=== PATIENT | female | born 1960 | race Caucasian/White ===

== ENCOUNTER 2017-08-11 17:31 | Inpatient (IN) | payer MEDICARE, MEDICAID ==
[2017-08-11 19:22] LABS: BASO # 0.1 10^3/uL (0.0-0.2); BASO % 0.7 % (0.0-1.0); EOS # 0.2 10^3/uL (0.0-0.50); EOS % 2.5 % (0.0-3.0); IMMATURE GRANULOCYTE % 0.1 % (0-3.0); LYMPH # 1.2 10^3/uL (1.5-4.5); LYMPH % 15.5 % (24.0-44.0); MEAN CORPUSCULAR HEMOGLOBIN 31.3 pg (27.0-33.0); MEAN CORPUSCULAR HGB CONC 33.3 g/dl (32.0-36.5); MEAN CORPUSCULAR VOLUME 93.8 fl (80.0-96.0); MONO # 0.8 10^3/uL (0.0-0.8); MONO % 10.7 % (0.0-5.0); NEUTROPHILS # 5.3 10^3/uL (1.8-7.7); NEUTROPHILS % 70.5 % (36.0-66.0); PLATELET COUNT, AUTOMATED 208 10^3/uL (150-450); RED BLOOD COUNT 4.16 10^6/uL (4.00-5.40); RED CELL DISTRIBUTION WIDTH 12.7 % (11.5-14.5); WHITE BLOOD COUNT 7.5 10^3/uL (4.0-10.0)
[2017-08-11] MEDS: NS 1,000 ML IV (19:29)
[2017-08-11 19:35] LABS: INR 1.11; PARTIAL THROMBOPLASTIN TIME 26.7 SECONDS (25.4-37.6); PROTHROMBIN TIME 14.5 SECONDS (12.1-14.4)
[2017-08-11 19:44] LABS: ANION GAP 7 MEQ/L (8-16); BLOOD UREA NITROGEN 14 MG/DL (7-18); CALCIUM LEVEL 8.7 MG/DL (8.5-10.1); CARBON DIOXIDE LEVEL 28 MEQ/L (21-32); CHLORIDE LEVEL 106 MEQ/L (98-107); CREATININE FOR GFR 0.58 MG/DL (0.55-1.30); GLOMERULAR FILTRATION RATE > 60.0 (>51); GLUCOSE, FASTING 94 MG/DL (70-100); POTASSIUM SERUM 3.8 MEQ/L (3.5-5.1); SODIUM LEVEL 141 MEQ/L (136-145)
[2017-08-11] MEDS ORDERED: ISOVUE-370 76% 100ML VIAL (Q9967) As Ordered (19:58)
[2017-08-11] MEDS: HEPARIN SOD (PORCINE) 5000 UNITS/ML VIAL IV (22:54)
[2017-08-11] MEDS: HEPARIN DRIP 25,000 UNITS in APPROPRIATE DILUENT 1 EA IV (22:55)
[2017-08-12 00:42] LABS: PARTIAL THROMBOPLASTIN TIME > 240.0 SECONDS (25.4-37.6)
[2017-08-12 01:30] LABS: PARTIAL THROMBOPLASTIN TIME 65.7 SECONDS (25.4-37.6)
[2017-08-12] MEDS: HEPARIN DRIP 25,000 UNITS in APPROPRIATE DILUENT 1 EA IV (01:50)
[2017-08-12] MEDS ORDERED: PILL CRUSHER/CUTTER 1 EACH XX (02:00)
[2017-08-12] MEDS: AMPICILLIN SOD/SULBACTAM SOD 1.5 GM in D5W MINI-BAG PLUS 50 ML IV ×5 (02:27→23:57)
[2017-08-12] MEDS: ACETAMINOPHEN TAB 650MG DOSE (2X325MG) PO ×3 (02:27→21:54)
[2017-08-12 08:13] LABS: HEMOGLOBIN 12.2 g/dl (12.0-15.5); MEAN CORPUSCULAR HEMOGLOBIN 31.3 pg (27.0-33.0); MEAN CORPUSCULAR HGB CONC 33.9 g/dl (32.0-36.5); MEAN CORPUSCULAR VOLUME 92.3 fl (80.0-96.0); PLATELET COUNT, AUTOMATED 192 10^3/uL (150-450); RED CELL DISTRIBUTION WIDTH 12.7 % (11.5-14.5); WHITE BLOOD COUNT 5.7 10^3/uL (4.0-10.0)
[2017-08-12 08:24] LABS: PARTIAL THROMBOPLASTIN TIME 38.1 SECONDS (25.4-37.6)
[2017-08-12 08:46] LABS: ANION GAP 8 MEQ/L (8-16); BLOOD UREA NITROGEN 12 MG/DL (7-18); CARBON DIOXIDE LEVEL 25 MEQ/L (21-32); CHLORIDE LEVEL 110 MEQ/L (98-107); CREATININE FOR GFR 0.44 MG/DL (0.55-1.30); GLOMERULAR FILTRATION RATE > 60.0 (>51); GLUCOSE, FASTING 87 MG/DL (70-100); POTASSIUM SERUM 4.2 MEQ/L (3.5-5.1); SODIUM LEVEL 143 MEQ/L (136-145)
[2017-08-12] MEDS: HEPARIN SOD (PORCINE) 5000 UNITS/ML VIAL IV ×2 (08:52→22:25)
[2017-08-12] MEDS: SENOKOT S TAB PO ×2 (08:52→20:26)
[2017-08-12] MEDS: PANTOPRAZOLE 40MG TAB (PROTONIX) PO (08:53)
[2017-08-12 15:17] LABS: PARTIAL THROMBOPLASTIN TIME 68.6 SECONDS (25.4-37.6)
[2017-08-12] MEDS: AMITRIPTYLINE 25 MG TAB PO (20:26)
[2017-08-12 22:02] LABS: PARTIAL THROMBOPLASTIN TIME 47.4 SECONDS (25.4-37.6)
[2017-08-13] MEDS: HEPARIN DRIP 25,000 UNITS in APPROPRIATE DILUENT 1 EA IV (01:45)
[2017-08-13] MEDS: AMPICILLIN SOD/SULBACTAM SOD 1.5 GM in D5W MINI-BAG PLUS 50 ML IV (05:07)
[2017-08-13 06:00] LABS: HEMATOCRIT 36.7 % (36.0-47.0); HEMOGLOBIN 12.2 g/dl (12.0-15.5); MEAN CORPUSCULAR HGB CONC 33.2 g/dl (32.0-36.5); MEAN CORPUSCULAR VOLUME 93.1 fl (80.0-96.0); PLATELET COUNT, AUTOMATED 207 10^3/uL (150-450); RED BLOOD COUNT 3.94 10^6/uL (4.00-5.40); RED CELL DISTRIBUTION WIDTH 12.7 % (11.5-14.5); WHITE BLOOD COUNT 5.6 10^3/uL (4.0-10.0)
[2017-08-13 06:17] LABS: PARTIAL THROMBOPLASTIN TIME 105.5 SECONDS (25.4-37.6)
[2017-08-13 06:20] LABS: ANION GAP 6 MEQ/L (8-16); BLOOD UREA NITROGEN 9 MG/DL (7-18); CALCIUM LEVEL 8.4 MG/DL (8.5-10.1); CARBON DIOXIDE LEVEL 27 MEQ/L (21-32); CHLORIDE LEVEL 110 MEQ/L (98-107); GLOMERULAR FILTRATION RATE > 60.0 (>51); GLUCOSE, FASTING 105 MG/DL (70-100); POTASSIUM SERUM 4.1 MEQ/L (3.5-5.1); SODIUM LEVEL 143 MEQ/L (136-145)
[2017-08-13] MEDS: PANTOPRAZOLE 40MG INJ (PROTONIX) (C9113) IV (08:37)
[2017-08-13] MEDS: SENOKOT S TAB PO (08:37)
[2017-08-13] MEDS: RIVAROXABAN 15 MG TAB (XARELTO) PO (10:21)
== END 2017-08-13 14:00 | disposition home or self-care (01) | DRG 300 ==
LOC: M PCU 08-12 00:47 → M ED 17:31 → M ED INP 22:50
DX: I82.401 Acute embolism and thrombosis of unspecified deep veins of right lower extremity (principal); F73 Profound intellectual disabilities; K59.00 Constipation, unspecified; M81.0 Age-related osteoporosis without current pathological fracture; D25.9 Leiomyoma of uterus, unspecified; Z79.899 Other long term (current) drug therapy

== ENCOUNTER 2018-01-10 14:56 | Emergency (ER) | payer MEDICARE, MEDICAID ==
[2018-01-10] MEDS: NS 1,000 ML IV (16:18)
[2018-01-10] MEDS: KETOROLAC 30 MG/ML VIAL (J1885) IV (16:18)
[2018-01-10 16:20] LABS: BASO # 0.1 10^3/uL (0.0-0.2); BASO % 0.9 % (0.0-1.0); EOS # 0.2 10^3/uL (0.0-0.50); EOS % 3.2 % (0.0-3.0); HEMATOCRIT 23.5 % (36.0-47.0); HEMOGLOBIN 7.6 g/dl (12.0-15.5); IMMATURE GRANULOCYTE % 0.4 % (0-3.0); LYMPH # 1.8 10^3/uL (1.5-4.5); LYMPH % 31.7 % (24.0-44.0); MEAN CORPUSCULAR HEMOGLOBIN 31.3 pg (27.0-33.0); MEAN CORPUSCULAR HGB CONC 32.3 g/dl (32.0-36.5); MEAN CORPUSCULAR VOLUME 96.7 fl (80.0-96.0); MONO # 0.7 10^3/uL (0.0-0.8); MONO % 12.6 % (0.0-5.0); NEUTROPHILS # 2.9 10^3/uL (1.8-7.7); NEUTROPHILS % 51.2 % (36.0-66.0); PLATELET COUNT, AUTOMATED 208 10^3/uL (150-450); RED BLOOD COUNT 2.43 10^6/uL (4.00-5.40); RED CELL DISTRIBUTION WIDTH 13.2 % (11.5-14.5); WHITE BLOOD COUNT 5.6 10^3/uL (4.0-10.0)
[2018-01-10 16:30] LABS: INR 1.36; PROTHROMBIN TIME 16.9 SECONDS (12.1-14.4)
[2018-01-10 16:31] LABS: PARTIAL THROMBOPLASTIN TIME 25.1 SECONDS (25.4-37.6)
[2018-01-10 16:44] LABS: ANION GAP 8 MEQ/L (8-16); BLOOD UREA NITROGEN 14 MG/DL (7-18); CALCIUM LEVEL 7.9 MG/DL (8.5-10.1); CARBON DIOXIDE LEVEL 26 MEQ/L (21-32); CHLORIDE LEVEL 105 MEQ/L (98-107); CREATININE FOR GFR 0.55 MG/DL (0.55-1.30); GLOMERULAR FILTRATION RATE > 60.0 (>51); GLUCOSE, FASTING 101 MG/DL (70-100); POTASSIUM SERUM 4.3 MEQ/L (3.5-5.1); SODIUM LEVEL 139 MEQ/L (136-145)
[2018-01-10 17:22] LABS: BILIRUBIN, URINE MANUAL OBSCURED (NEGATIVE); BLOOD URINE MANUAL RFX POSITIVE (NEGATIVE); GLUCOSE, URINE (UA) MANUAL OBSCURED mg/dL (NEGATIVE); KETONE, URINE MANUAL OBSCURED mg/dL (NEGATIVE); NITRITE, URINE MANUAL RFX OBSCURED (NEGATIVE); PROTEIN, URINE MANUAL REFLEX OBSCURED mg/dL (NEGATIVE); UROBILINOGEN, URINE MANUAL OBSCURED mg/dl (NORMAL)
[2018-01-10 17:23] LABS: WBC, URINE MAN RFX NONE SEEN /hpf (0-3)
[2018-01-10 17:24] LABS: BACTERIA, URINE NONE SEEN; HYALINE CAST, URINE NONE SEEN /lpf (0-1); MICROSCOPIC EXAM UNSPUN; RBC, URINE TNTC /hpf (0-3); SQUAMOUS EPITHELIAL CELL URINE SMALL AMOUNT /hpf (SMALL AMT)
[2018-01-10] MEDS: MEGESTROL 40 MG TAB PO (18:38)
[2018-01-10] MEDS: METHYLERGONOVINE MALEATE 0.2 MG/ML VIAL (J2210) IM (18:38)
== END 2018-01-10 22:51 | disposition home or self-care (01) ==
LOC: M ED 14:56
DX: D25.9 Leiomyoma of uterus, unspecified (principal); N93.8 Other specified abnormal uterine and vaginal bleeding; D50.0 Iron deficiency anemia secondary to blood loss (chronic); G80.9 Cerebral palsy, unspecified; K21.9 Gastro-esophageal reflux disease without esophagitis; Z79.899 Other long term (current) drug therapy; Z79.01 Long term (current) use of anticoagulants
CPT/HCPCS: J2210